=== PATIENT | female | born 1955 | race Caucasian/White ===

== ENCOUNTER 2019-04-10 19:21 | Emergency (ER) | payer OTHER ==
[2019-04-10] MEDS ORDERED: OXYMETAZOLINE 0.05% NASAL SOLUTION 15 ML BOTTLE NS ONE (19:51)
--- NOTE | 2019-04-10 19:57 | PDOC ---
History of Present Illness - General Chief Complaint: Nasal Bleeding Stated Complaint: NOSE BLEED Time Seen by Provider: 04/10/19 19:36 - History of Present Illness Initial Comments: 04/10/19 19:52 64 yo F PMH HTN, NIDDM, on baby aspirin, presenting with nosebleed. Started around 1800 and has been ongoing since then. States that this is her third bleed in the past week, no history of bleeds in the past. The previous two stopped within 15 minutes with pressure, however this one has kept bleeding. Notes that she was sneezing a lot yesterday. Reports that the blood is beginning to clot off, but she is not sure where she is actively bleeding anymore. Denies CP, SOB, dizziness, lightheadedness, fevers/chills, constipation/ diarrhea. Past History - Past Medical History Allergies/Adverse Reactions: Allergies Allergy/AdvReac Type Severity Reaction Status Date / Time No Known Allergies Allergy Verified 04/10/19 19:37 - Psycho Social/Smoking Cessation Hx Smoking History: Never smoked Hx Alcohol Use: Yes (social) Review of Systems - Review of Systems Comments:: 04/10/19 20:04 GENERAL/CONSTITUTIONAL: No fever or chills. No weakness. HEAD, EYES, EARS, NOSE AND THROAT: No change in vision. No ear pain or discharge. No sore throat. Positive epistaxis. CARDIOVASCULAR: No chest pain or shortness of breath. RESPIRATORY: No cough, wheezing, or hemoptysis. GASTROINTESTINAL: No nausea, vomiting, diarrhea or constipation. GENITOURINARY: No dysuria, frequency, or change in urination. MUSCULOSKELETAL: No joint or muscle swelling or pain. No neck or back pain. SKIN: No rash NEUROLOGIC: No headache, vertigo, loss of consciousness, or change in strength/ sensation. ENDOCRINE: No increased thirst. No abnormal weight change. HEMATOLOGIC/LYMPHATIC: No anemia, easy bleeding, or history of blood clots. ALLERGIC/IMMUNOLOGIC: No hives or skin allergy *Physical Exam - Vital Signs Last Vital Signs Temp Pulse Resp BP Pulse Ox 98 F 111 H 20 151/78 97 04/10/19 19:25 04/10/19 19:25 04/10/19 19:25 04/10/19 19:25 04/10/19 19:25 - Physical Exam 04/10/19 20:07 Gen: well-developed, well-nourished, NAD Neuro: AAOX4, CN II-XII intact, FTN intact, EOMI, PERRLA, 5/5 strength, SILT HEENT: atraumatic, normocephalic, dry mucous membranes. Dried blood in both nares. Neck: trachea midline, supple CV: tachycardic in 100s, regular rhythm, no murmurs, rubs, or gallops Pulm: CTA b/l, no wheezing Abd: soft, non-distended, non-tender MSK: full ROM, intact pulses Extr: no edema, no deformities Skin: warm, dry Medical Decision Making - Medical Decision Making 04/10/19 20:08 Concern for nosebleed. Patient on baby aspirin. - Afrin, gauze, pressure - patient education about proper way to apply pressure - recommend humidifier - likely dc for further outpatient followup 04/10/19 20:52 Nosebleed stopped after Afrin and pressure. Will dc with further outpatient follow up. Education on preventing and stopping nosebleeds provided. Discharge - Discharge Information Problems reviewed: Yes Clinical Impression/Diagnosis: Nosebleed Condition: Improved Disposition: HOME - Admission No - Follow up/Referral - Patient Discharge Instructions Patient Printed Discharge Instructions: DI for Nosebleed Additional Instructions: You were seen with a nosebleed. This improved with Afrin and pressure. Follow up with your primary care doctor within one week. Return to the ED if you develop worsening symptoms. - Post Discharge Activity
--- NOTE | 2019-04-10 20:05 | PDOC ---
Attending Attestation - Resident Resident Name: Mya Tenorio - ED Attending Attestation I have performed the following: I have examined & evaluated the patient, The case was reviewed & discussed with the resident, I agree w/resident's findings & plan, Exceptions are as noted - HPI HPI: 04/10/19 20:05 64 years old on a baby aspirin presents with 3 episodes of epistaxis not stopping - Physicial Exam PE: 04/10/19 20:06 No septal hematoma bilateral epistaxis on examination - Medical Decision Making 04/11/19 03:53 Status post Afrin and TXA epistaxis has resolved Findings, need for follow-up and strict return instructions discussed with patient.
[2019-04-10 21:18] VITALS: BP 129/68; PULSE 83; TEMP 98; BMI 41.1
== END 2019-04-10 21:01 | disposition home or self-care (01) ==
LOC: JER 19:21
PROC: 093K7ZZ Control Bleeding in Nasal Mucosa and Soft Tissue, Via Natural or Artificial Opening (ICD-10-PCS; principal; 2019-04-10)
DX: R04.0 Epistaxis (principal); I10 Essential (primary) hypertension; E11.9 Type 2 diabetes mellitus without complications; Z79.84 Long term (current) use of oral hypoglycemic drugs; Z79.82 Long term (current) use of aspirin
CPT/HCPCS: 30905; 99282-25

== ENCOUNTER 2019-11-18 04:22 | Day surgery (SDC) | payer OTHER ==
[2019-11-17 16:04] VITALS: BMI 40.7
--- NOTE | 2019-11-18 12:01 | PROC ---
Procedure Note Procedure: Preprocedure Diagnosis: Bilateral Sacroiliac Joint dysfunction Post Procedure Diagnosis: same Anesthesia: local Procedure Performed: Bilateral Sacroiliac Joint Blocks Procedure: After the risks and benefits were explained, informed consent was obtained. The patient was then taken to the procedure room and positioned prone on the procedure table. Time out was performed. The region overlying the sacrum was identified using fluoroscopy. The skin was prepped and draped in the usual sterile fashion. The skin and soft tissues were anesthetized using 1% lidocaine. Using fluoroscopic guidance, A 22g 3.5 inch spinal needle was introduced the junction of the inferior articulating facet and the sacrum where the L5 medial branch is located, and 25-gauge 2.5 inch spinal needles were then introduced to sacrum lateral to the right S1 S2 and S3 foramens where the RIGHT S1-S2 and S3 lateral branches are located. Omnipaque 180 confirmed appropriate needle placement. There was no epidural or vascular flow observed. .75% bupivacaine was drawn into a syringe. 0.5cc of this solution was then injected at each level. The same procedure was repeated on the LEFT side at the same levels. The patient tolerated the procedure well and there were no complications. The patient was taken to the post procedure recovery area in good condition. Vital signs remained stable before, and after the procedure. The patient was given oral follow-up instructions.The patient was givena follow up appointment with me in the near future. Mamadou Lauren D.O.
[2019-11-18] MEDS ORDERED: LIDOCAINE HCL 1% PRESERVATIVE FREE - 30ML VIAL IJ ONE (12:14)
[2019-11-18] MEDS ORDERED: IOHEXOL 180 MG/1 ML ML IJ ONE (12:14)
[2019-11-18] MEDS ORDERED: BUPIVACAINE HCL/PF 0.75% 10 ML VIAL NR ONE (12:15)
[2019-11-18 12:50] VITALS: BP 122/64
[2019-11-18 13:43] VITALS: PULSE 70; TEMP 98
== END 2019-11-18 12:52 | disposition home or self-care (01) ==
LOC: JASU-SURG 04:22
PROVIDERS: ATTEND Pain Medicine Pain Medicine
PROC: 3E0T33Z Introduction of Anti-inflammatory into Peripheral Nerves and Plexi, Percutaneous Approach (ICD-10-PCS; 2019-11-18)
PROC: 3E0T3BZ Introduction of Anesthetic Agent into Peripheral Nerves and Plexi, Percutaneous Approach (ICD-10-PCS; principal; 2019-11-18 11:30)
DX: M53.3 Sacrococcygeal disorders, not elsewhere classified (principal)
CPT/HCPCS: 76000-TC-FY

== ENCOUNTER 2019-12-09 04:14 | Day surgery (SDC) | payer OTHER ==
[2019-12-08 12:39] VITALS: BMI 40.7
[~2019-12-09 04:14] MED LIST: BUPIVACAINE HCL/PF 0.75% 10 ML VIAL NR ONE; IOHEXOL 180 MG/1 ML ML IJ ONE; LIDOCAINE HCL 1%, 10 MG/ML (20ML VIAL) INF ONE
[2019-12-09] MEDS ORDERED: LIDOCAINE HCL 1%, 10 MG/ML (20ML VIAL) ONE (07:25)
[2019-12-09] MEDS ORDERED: BUPIVACAINE HCL 50 ML ONE (07:25)
[2019-12-09] MEDS ORDERED: TRIAMCINOLONE ACET 40MG/1ML VIAL ONE (07:25)
[2019-12-09] MEDS ORDERED: BUPIVACAINE HCL/PF 0.25% (2.5MG/ML) 10 ML VIAL ONE (07:25)
[2019-12-09] MEDS ORDERED: BUPIVACAINE HCL/PF 0.75% 10 ML VIAL ONE (07:25)
--- NOTE | 2019-12-09 08:15 | PROC ---
Procedure Note Procedure: Pre procedure Diagnosis: Sacroilliac joint dysfunction Post Procedure Diagnosis: same Anesthesia: local Procedure Performed: Right SIJ L5 medial branch S1 S2 S3 radiofrequency ablation under fluoroscopic guidance. The patient was sterilely prepped and draped in the usual fashion while in the prone position. 1% Lidocaine was used to provide soft tissue anesthesia. Time out was performed. Under fluoroscopic guidance, 10mm active tip radiofrequency probes were successfully directed over the RIGHT L5 dorsal rami at the intersection of the transverse processes and superior articular processes. Under fluoroscopic guidance, 10mm active tip radiofrequency probes were successfully directed over the Right S1 S2 S3 Lateral Branches. Needle tip positions were confirmed with both sensory and motor stimulation,both of which resulted in appropriate responses in the lumbar and sacral region, and no response in the lower extremities. Lesions were performed at each site at a temperature of 90 degrees Celsius for duration of 90 seconds. Prior to each lesion, 1mL of a cocktail of 4mL of 2% lidocaine and 1mL Omnipaque 180 was injected at each site. Following each lesion, 0.5mL of solution containing 1mL dexamethasone and 2mL of .75% bupivacaine, was injected at each site. The patient tolerated the procedure well and there were no complications. The patient was taken to the post procedure recovery areain good condition. Vital signs remained stable before, during, and after the procedure. The patient was given oral and written follow-up instructions. The patient was given a follow up appointment with me in the near future. Mamadou BRAN
[2019-12-09] MEDS ORDERED: IOHEXOL 180 MG/1 ML ML IJ ONE (08:33)
[2019-12-09] MEDS ORDERED: LIDOCAINE HCL 2% (50ML VIAL) NR ONE (08:34)
[2019-12-09] MEDS ORDERED: LIDOCAINE HCL 1%, 10 MG/ML (20ML VIAL) INF ONE (08:34)
[2019-12-09] MEDS ORDERED: BUPIVACAINE HCL/PF 0.75% 10 ML VIAL NR ONE (08:34)
[2019-12-09] MEDS ORDERED: DEXAMETHASONE SOD PHOSPHATE 10 MG/1 ML VIAL IM ONE (08:35)
[2019-12-09 09:23] VITALS: TEMP 97
[2019-12-09 10:18] VITALS: BP 121/70; PULSE 77
== END 2019-12-09 09:45 | disposition home or self-care (01) ==
LOC: JASU-SURG 04:14
PROVIDERS: ATTEND Pain Medicine Pain Medicine
PROC: 3E0T3TZ Introduction of Destructive Agent into Peripheral Nerves and Plexi, Percutaneous Approach (ICD-10-PCS; 2019-12-09)
PROC: BR16YZZ Fluoroscopy of Lumbar Facet Joint(s) using Other Contrast (ICD-10-PCS; 2019-12-09)
PROC: 015R3ZZ Destruction of Sacral Nerve, Percutaneous Approach (ICD-10-PCS; principal; 2019-12-09 08:00)
DX: M53.3 Sacrococcygeal disorders, not elsewhere classified (principal)
CPT/HCPCS: 76000-TC-FY; J1100

== ENCOUNTER 2021-12-17 05:24 | Day surgery (SDC) | payer OTHER, MEDICARE ==
[2021-12-13 10:26] VITALS: BMI 35.4
[2021-12-17 06:29] VITALS: RESP 20
[2021-12-17] MEDS ORDERED: TRIAMCINOLONE ACET 40MG/1ML VIAL ONE (07:16)
[2021-12-17] MEDS ORDERED: LIDOCAINE HCL/PF 1% SDV 5ML VIAL ONE (07:16)
[2021-12-17] MEDS ORDERED: BUPIVACAINE HCL/PF 0.5% (5MG/ML) 10 ML VIAL ONE (07:25)
[2021-12-17] MEDS ORDERED: IOHEXOL 180 MG/1 ML ML IJ ONE (08:30)
[2021-12-17] MEDS ORDERED: BUPIVACAINE HCL/PF 0.5% (5MG/ML) 10 ML VIAL IJ ONE (08:31)
[2021-12-17] MEDS ORDERED: LIDOCAINE HCL 1%, 10 MG/ML (50 mL VIAL) NR ONE (08:31)
[2021-12-17] MEDS ORDERED: TRIAMCINOLONE ACET 40MG/1ML VIAL IM ONE (08:32)
[2021-12-17 08:57] VITALS: PULSE 80
[2021-12-17 09:18] VITALS: BP 140/70; TEMP 97
== END 2021-12-17 09:18 | disposition home or self-care (01) ==
LOC: JASU-SURG 05:24
PROVIDERS: ATTEND Pain Medicine Pain Medicine
PROC: 3E0U3BZ Introduction of Anesthetic Agent into Joints, Percutaneous Approach (ICD-10-PCS; 2021-12-17)
PROC: 3E0U33Z Introduction of Anti-inflammatory into Joints, Percutaneous Approach (ICD-10-PCS; principal; 2021-12-17 08:00)
DX: M53.3 Sacrococcygeal disorders, not elsewhere classified (principal)
CPT/HCPCS: 76000-TC-FY

== ENCOUNTER 2023-10-23 04:11 | Day surgery (SDC) | payer OTHER, MEDICARE ==
[2023-10-23] MEDS ORDERED: BUPIVACAINE HCL/PF 0.5% (5MG/ML) 10 ML VIAL ONE (07:31)
[2023-10-23] MEDS ORDERED: TRIAMCINOLONE ACET 40MG/1ML VIAL ONE (07:31)
[2023-10-23] MEDS ORDERED: LIDOCAINE HCL/PF 1% SDV 5ML VIAL ONE (07:31)
[2023-10-23] MEDS ORDERED: ACETAMINOPHEN 500 MG TABLET (FP) PO PRN (10:05)
[2023-10-23 11:53] VITALS: BP 142/65; PULSE 66; RESP 16; TEMP 97.6
== END 2023-10-23 12:10 | disposition home or self-care (01) ==
LOC: JASU-SURG 04:11
PROVIDERS: ATTEND Pain Medicine Pain Medicine
PROC: 3E0U3BZ Introduction of Anesthetic Agent into Joints, Percutaneous Approach (ICD-10-PCS; 2023-10-23)
PROC: 3E0U33Z Introduction of Anti-inflammatory into Joints, Percutaneous Approach (ICD-10-PCS; principal; 2023-10-23 11:23)
DX: M53.3 Sacrococcygeal disorders, not elsewhere classified (principal)
CPT/HCPCS: 76000-TC-FY

== ENCOUNTER 2024-01-14 03:55 | Day surgery (SDC) | payer OTHER, MEDICARE ==
[2024-01-13 12:51] VITALS: BMI 35.4
[2024-01-14] MEDS ORDERED: ACETAMINOPHEN 500 MG TABLET (FP) PO PRN (09:11)
[2024-01-14 11:03] VITALS: RESP 18
[2024-01-14] MEDS: BUPIVACAINE HCL/PF 0.5% (5 MG/ML) 30 ML VIAL IJ ONE (12:44)
[2024-01-14 13:39] VITALS: BP 139/74; PULSE 70; TEMP 98.6
== END 2024-01-14 13:30 | disposition home or self-care (01) ==
LOC: JASU-SURG 03:55
PROVIDERS: ATTEND Pain Medicine Pain Medicine
PROC: 3E0T3BZ Introduction of Anesthetic Agent into Peripheral Nerves and Plexi, Percutaneous Approach (ICD-10-PCS; principal; 2024-01-14 12:30)
DX: M47.812 Spondylosis without myelopathy or radiculopathy, cervical region (principal)
CPT/HCPCS: 76000-TC-FY

== ENCOUNTER → 2024-02-18 | Day surgery (SDC) | payer OTHER, MEDICARE ==
[2024-02-12 17:00] VITALS: BMI 35.1
[~2024-02-18] MED LIST changes: +ACETAMINOPHEN 500 MG TABLET (FP) PO PRN; -BUPIVACAINE HCL/PF 0.75% 10 ML VIAL NR ONE; -IOHEXOL 180 MG/1 ML ML IJ ONE; -LIDOCAINE HCL 1%, 10 MG/ML (20ML VIAL) INF ONE
[2024-02-18 11:58] VITALS: RESP 18
[2024-02-18] MEDS: BUPIVACAINE HCL/PF 0.5% (5MG/ML) 10 ML VIAL IJ ONE ×2 (12:52)
[2024-02-18 13:20] VITALS: BP 125/69; PULSE 77; TEMP 98.2
== END | disposition home or self-care (01) ==
LOC: JASU-SURG 05:28
PROVIDERS: ATTEND Pain Medicine Pain Medicine
PROC: 3E0T33Z Introduction of Anti-inflammatory into Peripheral Nerves and Plexi, Percutaneous Approach (ICD-10-PCS; 2024-02-18)
PROC: 3E0T3BZ Introduction of Anesthetic Agent into Peripheral Nerves and Plexi, Percutaneous Approach (ICD-10-PCS; principal; 2024-02-18 13:30)
DX: M47.812 Spondylosis without myelopathy or radiculopathy, cervical region (principal)
CPT/HCPCS: 76000-TC-FY

== ENCOUNTER 2024-03-17 04:27 | Day surgery (SDC) | payer OTHER, MEDICARE ==
[2024-03-16 11:06] VITALS: BMI 35.1
[2024-03-17 11:25] VITALS: RESP 16
[2024-03-17] MEDS: LIDOCAINE HCL 1% PRESERVATIVE FREE - 30ML VIAL IJ ONE (14:09)
[2024-03-17] MEDS: LIDOCAINE HCL/EPINEPHRINE/PF 10 ML VIAL NR ONE ×3 (14:11)
[2024-03-17] MEDS: BUPIVACAINE HCL/PF 0.5% (5MG/ML) 10 ML VIAL IJ ONE ×2 (14:20)
[2024-03-17] MEDS: DEXAMETHASONE SOD PHOSPHATE 10 MG/1 ML VIAL IM ONE ×2 (14:22)
[2024-03-17 14:37] VITALS: BP 170/68; PULSE 66; TEMP 97.2
[2024-03-17] MEDS ORDERED: ACETAMINOPHEN 500 MG TABLET (FP) PO PRN (18:48)
== END 2024-03-17 14:58 | disposition home or self-care (01) ==
LOC: JASU-SURG 04:27
PROVIDERS: ATTEND Pain Medicine Pain Medicine
PROC: 01513ZZ Destruction of Cervical Nerve, Percutaneous Approach (ICD-10-PCS; principal; 2024-03-17 12:45)
DX: M47.812 Spondylosis without myelopathy or radiculopathy, cervical region (principal)
CPT/HCPCS: 76000-TC-FY; J1100

== ENCOUNTER 2024-09-29 07:14 | Day surgery (SDC) | payer OTHER, MEDICARE ==
[2024-09-29] MEDS ORDERED: LIDOCAINE HCL/PF 1% SDV 5ML VIAL ONE (07:19)
[2024-09-29] MEDS ORDERED: LIDOCAINE HCL/PF 2% SDV 5ML VIAL ONE (07:19)
[2024-09-29] MEDS ORDERED: ACETAMINOPHEN 500 MG TABLET (FP) PO PRN (08:36)
[2024-09-29] MEDS ORDERED: CEFAZOLIN SODIUM 2 GM in DEXTROSE 5%-WATER 100 ML IVPB ONE (08:36)
[2024-09-29] MEDS ORDERED: CEFAZOLIN 2 GM/D5W 2 GM/50 ML ML IVPB ONE (09:16)
[2024-09-29] MEDS: CEFAZOLIN 2 GM/D5W 2 GM/50 ML ML IVPB ONE (09:43)
[2024-09-29 09:50] VITALS: RESP 16
[2024-09-29 12:11] VITALS: BP 167/64; PULSE 72; TEMP 97.9
== END 2024-09-29 12:58 | disposition home or self-care (01) ==
LOC: JASU-SURG 07:14
PROVIDERS: ATTEND Pain Medicine Pain Medicine
PROC: 00HU3MZ Insertion of Neurostimulator Lead into Spinal Canal, Percutaneous Approach (ICD-10-PCS; principal; 2024-09-29 10:45)
DX: G89.4 Chronic pain syndrome (principal); M96.1 Postlaminectomy syndrome, not elsewhere classified; M54.16 Radiculopathy, lumbar region
CPT/HCPCS: 63650; C1897; 76000-TC-FY